=== PATIENT | female | born 1965 | race American Indian/Alaskan Native ===

== ENCOUNTER 2019-12-10 00:59 | Emergency (ER) | payer SELFPAY ==
[2019-12-10] MEDS ORDERED: oxyCODONE /ACETAMINOPHEN 5-325MG TAB PO ONE (01:50)
[2019-12-10] MEDS ORDERED: TETANUS,DIPH,PERTUSS(ACELL) VACCINE 0.5 ML SYRINGE IM ONE (01:53)
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
[2019-12-10 03:13] VITALS: BP 141/81
== END 2019-12-10 03:30 | disposition home or self-care (01) ==
LOC: ED 00:59
DX: T21.22XA Burn of second degree of abdominal wall, initial encounter (principal); T24.111A Burn of first degree of right thigh, initial encounter; I10 Essential (primary) hypertension; F41.9 Anxiety disorder, unspecified; J45.909 Unspecified asthma, uncomplicated; F17.200 Nicotine dependence, unspecified, uncomplicated; F12.10 Cannabis abuse, uncomplicated; Z79.899 Other long term (current) drug therapy; X12.XXXA Contact with other hot fluids, initial encounter; Y93.89 Activity, other specified; Y92.89 Other specified places as the place of occurrence of the external cause; Y99.8 Other external cause status
CPT/HCPCS: 90471; 90715

== ENCOUNTER 2019-12-23 07:00 | Emergency (ER) | payer SELFPAY ==
[2019-12-23] MEDS ORDERED: ONDANSETRON 4 MG/2 ML INJ IV ONE (09:00)
[2019-12-23] MEDS ORDERED: SODIUM CHLORIDE 0.9% 1000 ML 1,000 ML IV ONE (09:00)
[2019-12-23] MEDS ORDERED: FAMOTIDINE 20 MG TAB PO ONE (09:01)
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
[2019-12-23 09:45] LABS: Basophils % (Auto) 0.6 % (0.0-1.8); Eosinophils # (Auto) 0.1 K/mm3 (0.0-0.4); Hematocrit 39.8 % (30.3-42.9); Hemoglobin 13.3 gm/dl (10.1-14.3); Lymphocytes # (Auto) 1.8 K/mm3 (1.2-5.4); Lymphocytes % (Auto) 30.9 % (13.4-35.0); Mean Corpuscular HGB Conc 34 % (30-34); Mean Corpuscular Volume 92 fl (79-97); Monocytes # (Auto) 0.3 K/mm3 (0.0-0.8); Monocytes % (Auto) 4.5 % (0.0-7.3); Platelet Count 270 K/mm3 (140-440); Red Blood Count 4.34 M/mm3 (3.65-5.03); Red Cell Distribution Width 15.5 % (13.2-15.2)
[2019-12-23 10:15] LABS: Albumin 3.4 g/dL (3.9-5); BUN/Creatinine Ratio 22; Blood Urea Nitrogen 11 mg/dL (7-17); Calcium 8.6 mg/dL (8.4-10.2); Hemolysis Index 98
[2019-12-23 10:36] LABS: Bilirubin,Urine NEG (Negative); Blood,Urine NEG (Negative); Color,Urine Yellow (Yellow); Mucus,Urine FEW /HPF; Protein,Urine <15 mg/dL mg/dL (Negative); Urobilinogen,Urine < 2.0 mg/dL (<2.0)
[2019-12-23 10:37] LABS: Alanine Aminotransferase 10 units/L (7-56)
[2019-12-23 11:07] VITALS: BP 154/80
== END 2019-12-23 11:06 | disposition home or self-care (01) ==
LOC: ED 07:00
DX: K29.20 Alcoholic gastritis without bleeding (principal); I10 Essential (primary) hypertension; F41.9 Anxiety disorder, unspecified; J45.909 Unspecified asthma, uncomplicated; F17.200 Nicotine dependence, unspecified, uncomplicated; Z79.899 Other long term (current) drug therapy
CPT/HCPCS: 36415; 80053; 81001; 83690; 83735; 84484; 84703; 85025; 93005; 93010; 96361; 96374; 99284; J2405; J7030

== ENCOUNTER 2020-02-03 12:35 | Emergency (ER) | payer SELFPAY ==
[2020-02-03 13:24] VITALS: BP 115/89
--- NOTE | 2020-02-03 13:26 | Emergency Department Report ---
ED ENT HPI - General Chief complaint: Dental/Oral Stated complaint: TOOTHACHE FACE SWOLLEN Time Seen by Provider: 02/03/20 13:22 Source: patient Mode of arrival: Ambulatory Limitations: No Limitations - History of Present Illness Initial comments: This is a 54-year-old female nontoxic well in appearance with no signs of distress presents to the ED with complaint of toothache. Patient denies any facial swelling. Denies following up with a dentist. Denies any fever, chills, headache, nausea, vomiting, chest pain or SOB. Denies any other complaints. Denies any allergies. MD complaint: tooth pain -: week(s) Location: tooth # 1 - pain here Severity: mild Severity scale (0 -10): 8 Quality: aching Consistency: constant Improves with: none Worsens with: none Context- Dental: history of dental caries, poor dental care Associated Symptoms: gum swelling, toothache. denies: fever, cough, pain with swallowing, sore throat, tinnitus, hearing loss, discharge from ear, rhinorrhea - Related Data Previous Rx's Medication Instructions Recorded Last Taken Type Doxycycline Monohydrate 100 mg PO BID 10 Days #20 capsule 12/10/19 Unknown Rx HYDROcodone/APAP 5-325 [[place] 1 each PO Q6HR PRN #8 tablet 12/10/19 Unknown Rx 5-325 mg TAB] Ibuprofen [Motrin 800 MG tab] 800 mg PO Q8HR PRN #21 tablet 12/10/19 Unknown Rx Mupirocin [Bactroban 2% OINT] 1 applic TP TID 15 Days #2 tube 12/10/19 Unknown Rx Silver Sulfadiazine [Ssd] 85 gm TP BID 5 Days #1 tube 12/10/19 Unknown Rx Famotidine [Pepcid] 40 mg PO QHS #14 tablet 12/23/19 Unknown Rx Ondansetron [Zofran Odt] 4 mg PO Q8HR PRN #12 tab.rapdis 12/23/19 Unknown Rx Clindamycin [Clindamycin CAP] 300 mg PO Q8H #21 cap 02/03/20 Unknown Rx Naproxen 500 mg PO Q12H PRN #12 tablet 02/03/20 Unknown Rx Allergies Allergy/AdvReac Type Severity Reaction Status Date / Time codeine Allergy Unknown Verified 02/03/20 13:24 ED Dental HPI - General Chief complaint: Dental/Oral Stated complaint: TOOTHACHE FACE SWOLLEN Time Seen by Provider: 02/03/20 13:22 Source: patient Mode of arrival: Ambulatory Limitations: No Limitations - Related Data Previous Rx's Medication Instructions Recorded Last Taken Type Doxycycline Monohydrate 100 mg PO BID 10 Days #20 capsule 12/10/19 Unknown Rx HYDROcodone/APAP 5-325 [[place] 1 each PO Q6HR PRN #8 tablet 12/10/19 Unknown Rx 5-325 mg TAB] Ibuprofen [Motrin 800 MG tab] 800 mg PO Q8HR PRN #21 tablet 12/10/19 Unknown Rx Mupirocin [Bactroban 2% OINT] 1 applic TP TID 15 Days #2 tube 12/10/19 Unknown Rx Silver Sulfadiazine [Ssd] 85 gm TP BID 5 Days #1 tube 12/10/19 Unknown Rx Famotidine [Pepcid] 40 mg PO QHS #14 tablet 12/23/19 Unknown Rx Ondansetron [Zofran Odt] 4 mg PO Q8HR PRN #12 tab.rapdis 12/23/19 Unknown Rx Clindamycin [Clindamycin CAP] 300 mg PO Q8H #21 cap 02/03/20 Unknown Rx Naproxen 500 mg PO Q12H PRN #12 tablet 02/03/20 Unknown Rx Allergies Allergy/AdvReac Type Severity Reaction Status Date / Time codeine Allergy Unknown Verified 02/03/20 13:24 ED Review of Systems ROS: Stated complaint: TOOTHACHE FACE SWOLLEN Other details as noted in HPI Constitutional: denies: chills, fever Eyes: denies: eye pain, eye discharge, vision change ENT: dental pain. denies: ear pain, throat pain Respiratory: denies: cough, shortness of breath, wheezing Cardiovascular: denies: chest pain, palpitations Endocrine: no symptoms reported Gastrointestinal: denies: abdominal pain, nausea, diarrhea Genitourinary: denies: urgency, dysuria, discharge Musculoskeletal: denies: back pain, joint swelling, arthralgia Skin: denies: rash, lesions Neurological: denies: headache, weakness, paresthesias Psychiatric: denies: anxiety, depression Hematological/Lymphatic: denies: easy bleeding, easy bruising ED Past Medical Hx - Past Medical History Hx Hypertension: Yes Hx Psychiatric Treatment: Yes (Anxiety) Hx Asthma: Yes - Social History Smoking Status: Current Every Day Smoker Substance Use Type: Alcohol - Medications Home Medications: Home Medications Medication Instructions Recorded Confirmed Last Taken Type Doxycycline Monohydrate 100 mg PO BID 10 Days #20 capsule 12/10/19 Unknown Rx HYDROcodone/APAP 5-325 [[place] 1 each PO Q6HR PRN #8 tablet 12/10/19 Unknown Rx 5-325 mg TAB] Ibuprofen [Motrin 800 MG tab] 800 mg PO Q8HR PRN #21 tablet 12/10/19 Unknown Rx Mupirocin [Bactroban 2% OINT] 1 applic TP TID 15 Days #2 tube 12/10/19 Unknown Rx Silver Sulfadiazine [Ssd] 85 gm TP BID 5 Days #1 tube 12/10/19 Unknown Rx Famotidine [Pepcid] 40 mg PO QHS #14 tablet 12/23/19 Unknown Rx Ondansetron [Zofran Odt] 4 mg PO Q8HR PRN #12 tab.rapdis 12/23/19 Unknown Rx Clindamycin [Clindamycin CAP] 300 mg PO Q8H #21 cap 02/03/20 Unknown Rx Naproxen 500 mg PO Q12H PRN #12 tablet 02/03/20 Unknown Rx ED Physical Exam - General Limitations: No Limitations General appearance: alert, in no apparent distress - Head Head exam: Present: atraumatic, normocephalic - Expanded ENT Exam Expanded Ear exam: Present: normal external inspection Mouth exam: Present: normal external inspection, tongue normal. Absent: drooling, trismus, muffled voice Teeth exam: Present: dental caries, fractured tooth #, dental tenderness #, gingival enlargement, other (no facial swelling. no abscess) Throat exam: Positive: normal inspection. Negative: tonsillar erythema, tonsillomegaly, tonsillar exudate, R peritonsillar mass, L peritonsillar mass - Neck Neck exam: Present: normal inspection, full ROM. Absent: tenderness, meningismus, lymphadenopathy ED Course Vital Signs 02/03/20 13:21 Temperature 98.7 F Pulse Rate 78 Respiratory 18 Rate Blood Pressure 115/89 O2 Sat by Pulse 99 Oximetry - Reevaluation(s) Reevaluation #1: 02/03/20 13:25 Patient is speaking in full sentences with no signs of distress noted. ED Medical Decision Making - Medical Decision Making Patient was instructed to Follow-up with a dentist doctor in 3-5 days or if symptoms worsen and continue return to emergency room as soon as possible. At time of discharge, the patient does not seem toxic or ill in appearance. No acute signs of distress noted. Patient agrees to discharge treatment plan of care. No further questions noted by the patient. Critical care attestation.: If time is entered above; I have spent that time in minutes in the direct care of this critically ill patient, excluding procedure time. ED Disposition Clinical Impression: Dental caries, Gingivitis Disposition: TO HOME OR SELFCARE Is pt being admited?: No Does the pt Need Aspirin: No Condition: Stable Instructions: Dental Caries (ED), Gingivitis (ED) Additional Instructions: Follow-up with a dentist doctor in 3-5 days or if symptoms worsen and continue return to emergency room as soon as possible. Prescriptions: Clindamycin [Clindamycin CAP] 300 mg PO Q8H #21 cap Naproxen 500 mg PO Q12H PRN #12 tablet PRN Reason: Pain , Severe (7-10) Referrals: PRIMARY CAREMD [Primary Care Provider] - 3-5 Days HARRIS RIVERS MD [Staff Physician] - 3-5 Days [facility] [Outside] - 3-5 Days
== END 2020-02-03 14:00 | disposition home or self-care (01) ==
LOC: ED 12:35
DX: K02.9 Dental caries, unspecified (principal); K05.10 Chronic gingivitis, plaque induced; I10 Essential (primary) hypertension; J45.909 Unspecified asthma, uncomplicated; F41.9 Anxiety disorder, unspecified; F17.200 Nicotine dependence, unspecified, uncomplicated; Z79.899 Other long term (current) drug therapy; Z88.5 Allergy status to narcotic agent
CPT/HCPCS: 99282

== ENCOUNTER 2021-03-27 13:46 | Emergency (ER) | payer SELFPAY ==
--- NOTE | 2021-03-27 14:22 | Emergency Department Report ---
- General Chief complaint: Rectal Pain Stated complaint: RECTAL/HEART PAIN Time Seen by Provider: 03/27/21 14:20 Source: patient Mode of arrival: Ambulatory Limitations: No Limitations - History of Present Illness Initial comments: 55-year-old female with a past medical history of hypertension and hyperlipidemia presents to the ER today complaint of a tender swollen area to her her rectal area. She states that she noticed it this morning. She reports increasing pain with walking and sitting. She denies any apparent drainage from it. She denies history of abscesses in the past. She denies any apparent fever or chills. She reports no other symptoms at this time. complaint: abscess/boil -: Gradual (notice pain today) - Related Data Previous Rx's Medication Instructions Recorded Last Taken Type HYDROcodone/APAP 5-325 [[place] 1 each PO Q4HR PRN #14 tablet 03/27/21 Unknown Rx 5/325] Lisinopril/Hydrochlorothiazide 1 each PO DAILY #30 tablet 03/27/21 Unknown Rx [Zestoretic 20-12.5 mg] Sulfamethoxazole/Trimethoprim 1 each PO BID #14 tablet 03/27/21 Unknown Rx [Bactrim DS TAB] Allergies Allergy/AdvReac Type Severity Reaction Status Date / Time codeine Allergy Unknown Verified 02/03/20 13:24 Abscess Boil HPI - HPI Chief Complaint: Rectal Pain Stated Complaint: RECTAL/HEART PAIN Time Seen by Provider: 03/27/21 14:20 Home Medications: Previous Rx's Medication Instructions Recorded Last Taken Type HYDROcodone/APAP 5-325 [[place] 1 each PO Q4HR PRN #14 tablet 03/27/21 Unknown Rx 5/325] Lisinopril/Hydrochlorothiazide 1 each PO DAILY #30 tablet 03/27/21 Unknown Rx [Zestoretic 20-12.5 mg] Sulfamethoxazole/Trimethoprim 1 each PO BID #14 tablet 03/27/21 Unknown Rx [Bactrim DS TAB] Allergies/Adverse Reactions: Allergies Allergy/AdvReac Type Severity Reaction Status Date / Time codeine Allergy Unknown Verified 02/03/20 13:24 ED Review of Systems ROS: Stated complaint: RECTAL/HEART PAIN Other details as noted in HPI Comment: All other systems reviewed and negative Constitutional: denies: chills, fever Eyes: denies: eye pain, eye discharge, vision change ENT: denies: ear pain, throat pain, dental pain, hearing loss, epistaxis, congestion Respiratory: denies: cough, shortness of breath, SOB with exertion, SOB at rest, wheezing Cardiovascular: denies: chest pain, palpitations Gastrointestinal: denies: abdominal pain, nausea, vomiting, diarrhea, constipation, hematemesis, melena, hematochezia Genitourinary: denies: urgency, dysuria, frequency, hematuria, discharge, abnormal menses, dyspareunia Musculoskeletal: denies: back pain, joint swelling, arthralgia Skin: rash, other (Tender swollen area in rectum). denies: lesions, change in color, change in hair/nails, pruritus Neurological: denies: headache, weakness, paresthesias, confusion, abnormal gait, vertigo Psychiatric: denies: anxiety, depression, auditory hallucinations, visual hallucinations, homicidal thoughts Hematological/Lymphatic: denies: easy bleeding, easy bruising ED Past Medical Hx - Past Medical History Previous Medical History?: Yes Hx Hypertension: Yes Hx Psychiatric Treatment: Yes (Anxiety) Hx Asthma: Yes - Social History Smoking Status: Never Smoker - Medications Home Medications: Home Medications Medication Instructions Recorded Confirmed Last Taken Type HYDROcodone/APAP 5-325 [[place] 1 each PO Q4HR PRN #14 tablet 03/27/21 Unknown Rx 5/325] Lisinopril/Hydrochlorothiazide 1 each PO DAILY #30 tablet 03/27/21 Unknown Rx [Zestoretic 20-12.5 mg] Sulfamethoxazole/Trimethoprim 1 each PO BID #14 tablet 03/27/21 Unknown Rx [Bactrim DS TAB] ED Physical Exam - General Limitations: No Limitations General appearance: alert, obese - Head Head exam: Present: atraumatic, normocephalic, normal inspection - Eye Eye exam: Present: normal appearance, PERRL, EOMI Pupils: Present: normal accommodation - Respiratory Respiratory exam: Present: normal lung sounds bilaterally. Absent: respiratory distress - Cardiovascular Cardiovascular Exam: Present: regular rate, normal rhythm, normal heart sounds - Rectal Rectal exam: Present: other (Abscess noted on the right in the butt cheeks; no rectal involvement; no apparent drainage or significant cellulitis) - Neurological Exam Neurological exam: Present: alert, oriented X3, CN II-XII intact, normal gait - Psychiatric Psychiatric exam: Present: normal affect, normal mood - Skin Skin exam: Present: intact ED Course Vital Signs 03/27/21 03/27/21 14:00 16:33 Temperature 98.3 F Pulse Rate 85 67 Respiratory 17 18 Rate Blood Pressure 181/106 183/107 [Right] O2 Sat by Pulse 99 99 Oximetry - I & D Right Rectum Type of Procedure: Simple Site: right perirectal area Blade Size: 11 I & D Procedure: betadine prep, sterile dressing applied Progress: 1% lidocaine with epi used. Moderate amount of pus and blood drained. Wound irrigated with saline No packing placed. Dressing applied. Patient tolerated procedure well without any complication ED Medical Decision Making - Medical Decision Making Pt with ~[id number] right lon-rectal abscess without any significant associated cellulitis or rectal involvement. Abscess was drained by me. See procedure note for detail. Patient is well appearing not toxic and not in any significant distress. She is afebrile. Her BP is elevated, she has known hx of HTN but admits that she has not taken her BP meds in awhile. She states she is unable to get medicaid to cover her office visits. She currently has no symptoms related to her BP. She is awake alert oriented x3 and neurologically intact with a normal gait. Patient states that she is to be on lisinopril, she will be given a prescription for lisinopril in addition antibiotics and pain meds. She will be given referral to local primary care doctor. Patient stable at time of discharge. Critical care attestation.: If time is entered above; I have spent that time in minutes in the direct care of this critically ill patient, excluding procedure time. ED Disposition Clinical Impression: Perirectal abscess, Uncontrolled hypertension, Non compliance w medication regimen Disposition: DC-01 TO HOME OR SELFCARE Is pt being admited?: No Does the pt Need Aspirin: No Condition: Stable Instructions: Skin Abscess, [id number], Hypertension (ED) Additional Instructions: Take the hydrocodone and the antibiotics as prescribed. You can also take [id number] Motrin for additional pain control. Keep the area clean with soap and water, do not do any tub baths, do not use peroxide or alcohol to clean the area. Dry well after each cleaning. Area should heal in about 5 to 7 days. Return to the ER if the area seems to be getting worse. Prescriptions: Sulfamethoxazole/Trimethoprim [Bactrim DS TAB] 1 each PO BID #14 tablet HYDROcodone/APAP 5-325 [[place] 5/325] 1 each PO Q4HR PRN #14 tablet PRN Reason: Pain Lisinopril/Hydrochlorothiazide [Zestoretic 20-12.5 mg] 1 each PO DAILY #30 ta blet Referrals: HARRIS RIVERS MD [Staff Physician] - 3-5 Days Time of Disposition: 16:21
[2021-03-27] MEDS ORDERED: LIDOCAINE 1%/EPINEPHRINE 1:100,000 VIAL (20 ML) INFILTRATI NR (14:30)
[2021-03-27] MEDS ORDERED: IBUPROFEN 800 MG TAB PO ONE (14:49)
[2021-03-27 16:35] VITALS: BP 183/107
== END 2021-03-27 17:01 | disposition home or self-care (01) ==
LOC: ED 13:46
DX: K61.1 Rectal abscess (principal); I10 Essential (primary) hypertension; J45.909 Unspecified asthma, uncomplicated; F41.9 Anxiety disorder, unspecified; Z91.14 Patient's other noncompliance with medication regimen; Z88.5 Allergy status to narcotic agent; Z79.899 Other long term (current) drug therapy
CPT/HCPCS: 99282

== ENCOUNTER 2021-06-05 16:10 | Emergency (ER) | payer SELFPAY ==
[2021-06-05 16:16] VITALS: BP 142/91
[2021-06-05] MEDS ORDERED: dexAMETHasone 4 MG/ML VIAL IM STA (16:17)
[2021-06-05] MEDS ORDERED: IPRATROPIUM 0.02% NEBU 2.5 ML IH ONE (16:17)
[2021-06-05] MEDS ORDERED: ALBUTEROL 2.5 MG/3 ML NEBU IH ONE (16:17)
--- NOTE | 2021-06-05 17:11 | Emergency Department Report ---
ED General Adult HPI - General Chief complaint: Dyspnea/Respdistress Stated complaint: ASTHMA/SOB Time Seen by Provider: 06/05/21 16:31 Source: patient Mode of arrival: Ambulatory Limitations: No Limitations - History of Present Illness Initial comments: 55-year-old female patient with history of hypertension, hyperlipidemia, and asthma presents to the emergency department with complaints of atraumatic right- sided back pain and shortness of breath starting this morning. Patient states she does not have insurance and has not taken her medications in several months. Smokes occasionally. Also endorses numbness in both feet. No known history of diabetes. Denies fever, chills, cough, syncope, lower extremity pain/swelling, hemoptysis. Denies all other complaints at this time. - Related Data Previous Rx's Medication Instructions Recorded Last Taken Type HYDROcodone/APAP 5-325 [[place] 1 each PO Q4HR PRN #14 tablet 03/27/21 Unknown Rx 5/325] Lisinopril/Hydrochlorothiazide 1 each PO DAILY #30 tablet 03/27/21 Unknown Rx [Zestoretic 20-12.5 mg] Sulfamethoxazole/Trimethoprim 1 each PO BID #14 tablet 03/27/21 Unknown Rx [Bactrim DS TAB] Albuterol Sulfate [Proair 90 mcg IH Q4H #1 aer.pow.ba 06/05/21 Unknown Rx Respiclick] Allergies Allergy/AdvReac Type Severity Reaction Status Date / Time codeine Allergy Unknown Verified 02/03/20 13:24 ED Review of Systems ROS: Stated complaint: ASTHMA/SOB Other details as noted in HPI Other: GENERAL: Negative for fever, chills, weight change, anorexia, fatigue. ENT: Negative for ear pain, difficulty hearing, sore throat, nasal congestion, epistaxis. CARDIOVASCULAR: Negative for chest pain, palpitations, lower extremity swelling. PULMONARY: Positive for shortness of breath. GASTROINTESTINAL: Negative for abdominal pain, nausea, vomiting, diarrhea, constipation. MUSCULOSKELETAL: Positive for back pain. NEUROLOGICAL: Negative for headache, seizure, syncope, paresthesias, weakness. INTEGUMENTARY: Negative for erythema, rash, diaphoresis, laceration, ecchymosis. HEMATOLOGICAL: Negative for hemoptysis, hematemesis, hematochezia, hematuria. PSYCHIATRIC: Negative for hallucinations, suicidal ideation, homicidal ideation, anxiety, depression. ED Past Medical Hx - Past Medical History Previous Medical History?: Yes Hx Hypertension: Yes Hx Psychiatric Treatment: Yes (Anxiety) Hx Asthma: Yes - Social History Smoking Status: Never Smoker - Medications Home Medications: Home Medications Medication Instructions Recorded Confirmed Last Taken Type HYDROcodone/APAP 5-325 [[place] 1 each PO Q4HR PRN #14 tablet 03/27/21 Unknown Rx 5/325] Lisinopril/Hydrochlorothiazide 1 each PO DAILY #30 tablet 03/27/21 Unknown Rx [Zestoretic 20-12.5 mg] Sulfamethoxazole/Trimethoprim 1 each PO BID #14 tablet 03/27/21 Unknown Rx [Bactrim DS TAB] Albuterol Sulfate [Proair 90 mcg IH Q4H #1 aer.pow.ba 06/05/21 Unknown Rx Respiclick] ED Physical Exam - General Limitations: No Limitations - Other Other exam information: General: Awake and alert. Appears uncomfortable. Pacing the exam room, holding her back. Head: Atraumatic, normocephalic. Eyes: EOMI. Pupils are equal and round. Normal sclera and conjunctiva. ENT: Oral mucosa is moist. Normal pharyngeal exam. Neck: Supple. No lymphadenopathy. Pulmonary: Increased work of breathing. Speaking in full sentences. Clear to auscultation bilaterally. Cardiac: Regular rate and rhythm. Pulses are palpable and equal bilaterally. No lower extremity cyanosis or edema. Skin: Warm and dry. No rashes. Abdomen: Soft, non-tender, non-protuberant. No guarding, rigidity, or rebound. Bowel sounds are normal. No organomegaly or masses noted. Back: Normal alignment. No CVA tenderness. Extremities: Symmetrical. Full range of motion intact. Neurological: Alert and oriented, appropriately interactive, no focal deficits. Psych: Cooperative. Appropriate mood and affect. Speech is evenly metered. Thoughts are logically construed. ED Course Vital Signs 06/05/21 16:15 Temperature 98.5 F Pulse Rate 84 Respiratory 22 Rate Blood Pressure 142/91 O2 Sat by Pulse 100 Oximetry ED Medical Decision Making - Lab Data Result diagrams: 06/05/21 17:36 06/05/21 17:36 - EKG Data 06/05/21 17:36 EKG shows sinus bradycardia with a ventricular rate of 58 bpm. Normal axis. Normal NH interval. Normal QT interval. Good R wave progression. No ST segment changes. Over read by attending emergency physician, who agrees with this interpretation. - Radiology Data [facility] [address] [place] [address] Cat Scan Report Signed Patient: ERIKA BECERRA MR#: [id number] : 1965 Acct:[id number] Age/Sex: 55 / F ADM Date: 06/05/21 Loc: ED Attending Dr: Ordering Physician: TWAN JOSÉ Date of Service: 06/05/21 Procedure(s): CT angio chest Accession Number(s): [id number] cc: TWAN JOSÉ CTA CHEST WITH CONTRAST INDICATION / CLINICAL INFORMATION: atraumatic back pain/numbness in feet. TECHNIQUE: Axial CT images were obtained through the chest after injection of 100 mL's of Omnipaque 350 IV contrast. 3 plane MIP and/or 3D reconstructions were produced. All CT scans at this location are performed using CT dose reduction for ALARA by means of automated exposure control. COMPARISON: None available. FINDINGS: PULMONARY ARTERIES: No pulmonary emboli. THORACIC AORTA: No significant abnormality. HEART: No significant abnormality. CORONARY ARTERY CALCIFICATION: None. MEDIASTINUM / KUN: No significant abnormality. PLEURA: No pleural effusion. No pneumothorax. LUNGS: No acute air space or interstitial disease. There is a 1.4 cm pleural based density involving the right lower lobe. ADDITIONAL FINDINGS: None. UPPER ABDOMEN: Incompletely evaluated left renal cystic mass which demonstrates a prominent enhancing septation. This mass measures approximately 3.5 x 3.8 x 2.8 cm. SKELETAL STRUCTURES: No significant osseous abnormality. IMPRESSION: 1. No CT evidence for pulmonary embolism. 2. No acute findings. 3. Incidentally incompletely evaluated cystic renal mass involving the left kidney measuring up to 3.[address] or MRI of the kidneys is recommended as cell carcinoma is not excluded. 4. There is a 1.4 cm pleural-based density involving the right lower lobe. Follow-up CT of the chest is recommended in 3 months for further evaluation. Signer Name: Mook Meneses DO Signed: 06/05/2021 8:12 PM Workstation Name: [id number] Transcribed By: MADISON Dictated By: MOOK MENESES DO Electronically Authenticated By: MOOK MENESES DO Signed Date/Time: 06/05/212011 DD/ 05 TD/TT: - Medical Decision Making Differential diagnosis including but not limited to: asthma exacerbation, pleural effusion, pneumonia, aortic aneurysm/dissection, strain/sprain, viral upper respiratory infection On reevaluation, patient is stable and symptoms have significantly improved. She states she feels much better and is asking when she can be discharged home. Repeat cardiopulmonary exam demonstrates normal work of breathing, good air movement, clear to auscultation bilaterally. EKG without acute injury pattern. Labs are unremarkable. CTA of the chest was obtained due to the atraumatic nature of patient's back pain with reported numbness in her feet, which showed no evidence of aneurysm/dissection or pulmonary embolism. Incidentally, patient was found to have a left cystic renal mass measuring up to 3.8 cm, as well as a 1.4 cm pleural-based density involving the right lower lung. Further imaging on an outpatient basis is recommended, however there is no clinical indication for further diagnostic work-up on an emergent basis at this time. These findings were explained in detail to the patient, who understands the need for close outpatient follow-up. She has been referred to primary care provider and instructed to call tomorrow to schedule follow-up appointment. Patient has been provided with a copy of her imaging results and specifically instructed to bring these results with her to her follow-up appointment in order to facilitate ivana ropriate arrangement of further outpatient studies. Patient understands that failure to follow-up on these findings may result in a missed diagnosis of metastatic disease, and agrees to call Dr. Wood's office tomorrow. Strict return precautions provided. Case discussed with Dr. Carson, who agrees with diagnostic work-up/plan of care. Critical care attestation.: If time is entered above; I have spent that time in minutes in the direct care of this critically ill patient, excluding procedure time. ED Disposition Clinical Impression: Renal mass Asthma exacerbation Qualifiers: Asthma severity: unspecified severity Asthma persistence: unspecified Qualified Code(s): J45.901 - Unspecified asthma with (acute) exacerbation Disposition: DC-01 TO HOME OR SELFCARE Is pt being admited?: No Does the pt Need Aspirin: No Condition: Stable Instructions: Asthma Attack Prevention, Adult Additional Instructions: Use Albuterol inhaler as directed. Avoid environmental triggers, which may worsen your asthma. Take Tylenol every 4 hours and Motrin every 8 hours as needed for pain. Follow-up with Dr. Wood, primary care provider, this week. Call tomorrow to schedule an appointment. See referral information below. Bring a copy of today's CT results with you to your follow-up appointment. It is very important that you follow up with Dr. Wood regarding these fi ndings. Additional imaging on an outpatient basis is needed to further evaluate the renal mass involving the left kidney, as well as the right lower lung density, to determine if these findings are benign or malignant. Return to the emergency department immediately for new or worsening symptoms. Prescriptions: Albuterol Sulfate [Proair Respiclick] 90 mcg IH Q4H #1 aer.pow.ba Referrals: HARRIS WOOD MD [Staff Physician] - 3-5 Days Time of Disposition: 21:33 HEART Score - HEART Score History: Slightly suspicious EKG: Normal Age: 45-65 Risk factors: 1-2 risk factors Troponin: Troponin T < 0.010 ng/mL (0.00-0.029) 06/05/21 20:38 Troponin: < normal limit HEART Score: 2 - Critical Actions Critical Actions: 0-3 pts:0.9-1.7%risk of adverse cardiac event.Candidate for discharge
[2021-06-05 18:40] LABS: Basophils % (Auto) 0.2 % (0.0-1.8); Eosinophils # (Auto) 0.2 K/mm3 (0.0-0.4); Hematocrit 36.8 % (30.3-42.9); Hemoglobin 12.5 gm/dl (10.1-14.3); Lymphocytes # (Auto) 2.9 K/mm3 (1.2-5.4); Lymphocytes % (Auto) 44.2 % (13.4-35.0); Mean Corpuscular HGB Conc 34 % (30-34); Mean Corpuscular Volume 93 fl (79-97); Monocytes # (Auto) 0.5 K/mm3 (0.0-0.8); Platelet Count 235 K/mm3 (140-440); Red Blood Count 3.96 M/mm3 (3.65-5.03); Red Cell Distribution Width 16.2 % (13.2-15.2)
[2021-06-05 18:51] LABS: Alanine Aminotransferase 9 units/L (7-56); Albumin 3.6 g/dL (3.9-5); Blood Urea Nitrogen 11 mg/dL (7-17); Calcium 8.8 mg/dL (8.4-10.2); Hemolysis Index 17
[2021-06-05 18:58] LABS: BUN/Creatinine Ratio 22
--- NOTE | 2021-06-05 20:17 | Cat Scan Report ---
CTA CHEST WITH CONTRAST INDICATION / CLINICAL INFORMATION: atraumatic back pain/numbness in feet. TECHNIQUE: Axial CT images were obtained through the chest after injection of 100 mL's of Omnipaque 3 50 IV contrast. 3 plane MIP and/or 3D reconstructions were produced. All CT scans at this location ar e performed using CT dose reduction for ALARA by means of automated exposure control. COMPARISON: None available. FINDINGS: PULMONARY ARTERIES: No pulmonary emboli. THORACIC AORTA: No significant abnormality. HEART: No significant abnormality. CORONARY ARTERY CALCIFICATION: None. MEDIASTINUM / KUN: No significant abnormality. PLEURA: No pleural effusion. No pneumothorax. LUNGS: No acute air space or interstitial disease. There is a 1.4 cm pleural based density involving the right lower lobe. ADDITIONAL FINDINGS: None. UPPER ABDOMEN: Incompletely evaluated left renal cystic mass which demonstrates a prominent enhancing septation. This mass measures approximately 3.5 x 3.8 x 2.8 cm. SKELETAL STRUCTURES: No significant osseous abnormality. IMPRESSION: 1. No CT evidence for pulmonary embolism. 2. No acute findings. 3. Incidentally incompletely evaluated cystic renal mass involving the left kidney measuring up to 3. [address] or MRI of the kidneys is recommended as cell carcinoma is not excluded. 4. There is a 1.4 cm pleural-based density involving the right lower lobe. Follow-up CT of the chest is recommended in 3 months for further evaluation. Signer Name: Mook Rand DO Signed: 06/05/2021 8:12 PM Workstation Name: [id number]
--- NOTE | 2021-06-06 10:32 | Electrocardiograph Report ---
[facility] Test Date: 2021-06-05 Test Time: 17:26:17 Pat Name: ERIKA BECERRA Department: Room: Gender: F Hat Checker: DILMA : 1965 Requested By: RAMON DALTON Order Number: [id number] Reading MD: Tod Be Measurements Intervals [place] Rate: 58 P: 35 IA: 172 QRS: 20 QRSD: 72 T: 31 QT: 400 QTc: 395 Interpretive Statements Pacemaker spikes or artifacts Sinus bradycardia No previous ECG available for comparison Electronically Signed On 06-06-2021 10:31:56 EDT by Tod Be
== END 2021-06-05 21:47 | disposition home or self-care (01) ==
LOC: ED 16:10
DX: J45.901 Unspecified asthma with (acute) exacerbation (principal); N28.89 Other specified disorders of kidney and ureter; I10 Essential (primary) hypertension; F41.9 Anxiety disorder, unspecified
CPT/HCPCS: 36415; 71275; 80053; 83735; 84484; 85025; 93005; 96372; 99284; J1100; Q9967

== ENCOUNTER 2021-08-01 16:07 | Emergency (ER) | payer SELFPAY ==
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
[2021-08-01] MEDS ORDERED: IBUPROFEN 800 MG TAB PO ONE ×2 (16:11→18:48)
[2021-08-01] MEDS ORDERED: TETANUS,DIPH,PERTUSS(ACELL) VACCINE 0.5 ML SYRINGE IM ONE ×2 (16:11→20:00)
[2021-08-01 17:05] VITALS: BP 151/95
== END 2021-08-01 20:28 | disposition home or self-care (01) ==
LOC: ED 16:07
DX: S00.01XA Abrasion of scalp, initial encounter (principal); S60.419A Abrasion of unspecified finger, initial encounter; I10 Essential (primary) hypertension; J45.909 Unspecified asthma, uncomplicated; Z88.5 Allergy status to narcotic agent; Y04.8XXA Assault by other bodily force, initial encounter; Y93.89 Activity, other specified; Y92.89 Other specified places as the place of occurrence of the external cause; Y99.8 Other external cause status
CPT/HCPCS: 90471; 90715; 99283

== ENCOUNTER 2022-01-07 12:41 | Emergency (ER) | payer SELFPAY ==
[2022-01-07] MEDS ORDERED: IBUPROFEN 800 MG TAB PO ONE (14:07)
--- NOTE | 2022-01-07 14:13 | Emergency Department Report ---
ED ENT HPI - General Chief complaint: Dental/Oral Stated complaint: SOB Time Seen by Provider: 01/07/22 13:01 Source: patient Mode of arrival: Ambulatory Limitations: No Limitations - History of Present Illness Initial comments: This is a 56-year-old female nontoxic, well nourished in appearance, no acute signs of distress presents to the ED with c/o of mid upper toothache several weeks. Patient denies following up with a dentist. Patient describes toothache as aching level of 8 out of 10. Patient denies any facial swelling. Patient denies any numbness, tingling, fever, chills, headache, stiff neck, abdominal pain, chest pain, shortness of breath. Patient stated allergies to codeine. Patient denies any other complaints or symptoms. MD complaint: tooth pain -: days(s) Location: tooth # 1 - Pain here Severity: mild Severity scale (0 -10): 8 Quality: aching Consistency: constant Improves with: none Worsens with: none Associated Symptoms: gum swelling, toothache. denies: fever, cough, pain with swallowing, sore throat, tinnitus, hearing loss, discharge from ear, rhinorrhea - Related Data Previous Rx's Medication Instructions Recorded Last Taken Type HYDROcodone/APAP 5-325 [[place] 1 each PO Q4HR PRN #14 tablet 03/27/21 Unknown Rx 5/325] Lisinopril/Hydrochlorothiazide 1 each PO DAILY #30 tablet 03/27/21 Unknown Rx [Zestoretic 20-12.5 mg] Sulfamethoxazole/Trimethoprim 1 each PO BID #14 tablet 03/27/21 Unknown Rx [Bactrim DS TAB] Albuterol Sulfate [Proair 90 mcg IH Q4H #1 aer.pow.ba 06/05/21 Unknown Rx Respiclick] Amoxicillin/K Clav Tab [Augmentin 1 tab PO Q12HR #20 tab 01/07/22 Unknown Rx 875 mg] Chlorhexidine Mouthwash [Peridex] 15 ml MM BID #1 bottle 01/07/22 Unknown Rx Naproxen 500 mg PO Q12H PRN #12 tab 01/07/22 Unknown Rx Allergies Allergy/AdvReac Type Severity Reaction Status Date / Time codeine Allergy Unknown Verified 02/03/20 13:24 ED Dental HPI - General Chief complaint: Dental/Oral Stated complaint: SOB Time Seen by Provider: 01/07/22 13:01 Source: patient Mode of arrival: Ambulatory Limitations: No Limitations - Related Data Previous Rx's Medication Instructions Recorded Last Taken Type HYDROcodone/APAP 5-325 [[place] 1 each PO Q4HR PRN #14 tablet 03/27/21 Unknown Rx 5/325] Lisinopril/Hydrochlorothiazide 1 each PO DAILY #30 tablet 03/27/21 Unknown Rx [Zestoretic 20-12.5 mg] Sulfamethoxazole/Trimethoprim 1 each PO BID #14 tablet 03/27/21 Unknown Rx [Bactrim DS TAB] Albuterol Sulfate [Proair 90 mcg IH Q4H #1 aer.pow.ba 06/05/21 Unknown Rx Respiclick] Amoxicillin/K Clav Tab [Augmentin 1 tab PO Q12HR #20 tab 01/07/22 Unknown Rx 875 mg] Chlorhexidine Mouthwash [Peridex] 15 ml MM BID #1 bottle 01/07/22 Unknown Rx Naproxen 500 mg PO Q12H PRN #12 tab 01/07/22 Unknown Rx Allergies Allergy/AdvReac Type Severity Reaction Status Date / Time codeine Allergy Unknown Verified 02/03/20 13:24 ED Review of Systems ROS: Stated complaint: SOB Other details as noted in HPI Comment: All other systems reviewed and negative Constitutional: denies: chills, fever Eyes: denies: eye pain, eye discharge, vision change ENT: dental pain. denies: ear pain, throat pain, hearing loss, epistaxis, congestion Respiratory: denies: cough, shortness of breath, wheezing Cardiovascular: denies: chest pain, palpitations Endocrine: no symptoms reported Gastrointestinal: denies: abdominal pain, nausea, diarrhea Genitourinary: denies: urgency, dysuria, discharge Musculoskeletal: denies: back pain, joint swelling, arthralgia Skin: denies: rash, lesions Neurological: denies: headache, weakness, paresthesias Psychiatric: denies: anxiety, depression Hematological/Lymphatic: denies: easy bleeding, easy bruising ED Past Medical Hx - Past Medical History Hx Hypertension: Yes Hx Psychiatric Treatment: Yes (Anxiety) Hx Asthma: Yes - Social History Smoking Status: Never Smoker - Medications Home Medications: Home Medications Medication Instructions Recorded Confirmed Last Taken Type HYDROcodone/APAP 5-325 [[place] 1 each PO Q4HR PRN #14 tablet 03/27/21 Unknown Rx 5/325] Lisinopril/Hydrochlorothiazide 1 each PO DAILY #30 tablet 03/27/21 Unknown Rx [Zestoretic 20-12.5 mg] Sulfamethoxazole/Trimethoprim 1 each PO BID #14 tablet 03/27/21 Unknown Rx [Bactrim DS TAB] Albuterol Sulfate [Proair 90 mcg IH Q4H #1 aer.pow.ba 06/05/21 Unknown Rx Respiclick] Amoxicillin/K Clav Tab [Augmentin 1 tab PO Q12HR #20 tab 01/07/22 Unknown Rx 875 mg] Chlorhexidine Mouthwash [Peridex] 15 ml MM BID #1 bottle 01/07/22 Unknown Rx Naproxen 500 mg PO Q12H PRN #12 tab 01/07/22 Unknown Rx ED Physical Exam - General Limitations: No Limitations General appearance: alert, in no apparent distress - Head Head exam: Present: atraumatic, normocephalic - Eye Eye exam: Present: normal appearance - Expanded ENT Exam Expanded Ear exam: Present: normal external inspection Mouth exam: Present: normal external inspection. Absent: drooling, trismus Teeth exam: Present: dental tenderness #, gingival enlargement, other (no facial swelling. no abscess on exam) Throat exam: Positive: normal inspection, other (uvula midline). Negative: tonsillar erythema, tonsillomegaly, tonsillar exudate, R peritonsillar mass, L peritonsillar mass - Neck Neck exam: Present: normal inspection, full ROM. Absent: lymphadenopathy - Respiratory Respiratory exam: Absent: respiratory distress - Extremities Exam Extremities exam: Present: full ROM - Back Exam Back exam: Present: full ROM - Neurological Exam Neurological exam: Present: alert, oriented X3, normal gait - Psychiatric Psychiatric exam: Present: normal affect, normal mood - Skin Skin exam: Present: warm, dry, intact, normal color. Absent: rash ED Course Vital Signs 01/07/22 12:53 Temperature 98.5 F Pulse Rate 101 H Respiratory 20 Rate Blood Pressure 164/95 O2 Sat by Pulse 99 Oximetry - Reevaluation(s) Reevaluation #1: 01/07/22 14:09 Patient is speaking in full sentences with no signs of distress noted. ED Medical Decision Making - Medical Decision Making This is a 56-year-old female that presents with gingivitis and dental caries. Patient is stable and was examined by me. Exam does not show dental abscess. Patient is discharged with Augmentin, Peridex and naproxen. Patient was instructed to follow-up with a dentist doctor in 3-5 days or if symptoms worsen and continue return to emergency room as soon as possible. At time of discharge, the patient does not seem toxic or ill in appearance. No acute signs of distress noted. Patient agrees to discharge treatment plan of care. No further questions noted by the patient. Critical care attestation.: If time is entered above; I have spent that time in minutes in the direct care of this critically ill patient, excluding procedure time. ED Disposition Clinical Impression: Pain, dental, Gingivitis Disposition: HOME / SELF CARE / HOMELESS Is pt being admited?: No Does the pt Need Aspirin: No Condition: Stable Additional Instructions: Follow-up with a dentist doctor in 3-5 days or if symptoms worsen and continue return to emergency room as soon as possible. Prescriptions: Amoxicillin/K Clav Tab [Augmentin 875 mg] 1 tab PO Q12HR #20 tab Naproxen 500 mg PO Q12H PRN #12 tab PRN Reason: Pain , Severe (7-10) Chlorhexidine Mouthwash [Peridex] 15 ml MM BID #1 bottle Referrals: [facility] [Outside] - 3-5 Days [facility] [Outside] - 3-5 Days PRIMARY CARE, [Referring] - 3-5 Days Time of Disposition: 14:14
[2022-01-07 14:34] VITALS: BP 197/110
== END 2022-01-07 14:30 | disposition home or self-care (01) ==
LOC: ED 12:41
DX: K08.89 Other specified disorders of teeth and supporting structures (principal); K05.10 Chronic gingivitis, plaque induced; I10 Essential (primary) hypertension; J45.909 Unspecified asthma, uncomplicated; Z88.5 Allergy status to narcotic agent
CPT/HCPCS: 99282

== ENCOUNTER 2022-02-09 15:11 | Emergency (ER) | payer OTHER ==
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
[2022-02-09 20:21] VITALS: BP 172/97
== END 2022-02-09 20:21 | disposition home or self-care (01) ==
LOC: ED 15:11
DX: M79.601 Pain in right arm (principal); M54.9 Dorsalgia, unspecified; I10 Essential (primary) hypertension; F41.9 Anxiety disorder, unspecified; J45.909 Unspecified asthma, uncomplicated; Z88.5 Allergy status to narcotic agent; Z79.899 Other long term (current) drug therapy; V87.7XXA Person injured in collision between other specified motor vehicles (traffic), initial encounter; Y93.89 Activity, other specified; Y92.488 Other paved roadways as the place of occurrence of the external cause; Y99.8 Other external cause status
CPT/HCPCS: 99282

== ENCOUNTER 2022-02-25 12:08 | Emergency (ER) | payer SELFPAY ==
--- NOTE | 2022-02-25 13:30 | Emergency Department Report ---
<LIAM HAY - Last Filed: 02/25/22 13:25> ED Neuro Deficit HPI - General Chief Complaint: Altered Mental Status Stated Complaint: AMS Time Seen by Provider: 02/25/22 13:06 Source: family, EMS Mode of arrival: Stretcher Limitations: Altered Mental Status - History of Present Illness Initial Comments: Patient is 56 years old female with history of hypertension. Patient brought to the emergency room via EMS for evaluation of altered mental status. However when I was talking to the patient patient is not talking back to me. I immediately called her daughter and she stated that she was fine until 830 when she stopped talking. Stroke protocol immediately initiated and patient moved to CT for stat CT brain. Telemetry neurologist immediately consulted and discussed with -: Sudden Location: speech Presenting Symptoms: Present: Unable to Speak Clearly Place: home - Related Data Home Medications: Previous Rx's Medication Instructions Recorded Last Taken Type HYDROcodone/APAP 5-325 [[place] 1 each PO Q4HR PRN #14 tablet 03/27/21 Unknown Rx 5/325] Lisinopril/Hydrochlorothiazide 1 each PO DAILY #30 tablet 03/27/21 Unknown Rx [Zestoretic 20-12.5 mg] Sulfamethoxazole/Trimethoprim 1 each PO BID #14 tablet 03/27/21 Unknown Rx [Bactrim DS TAB] Albuterol Sulfate [Proair 90 mcg IH Q4H #1 aer.[email or web address] 06/05/21 Unknown Rx Respiclick] Amoxicillin/K Clav Tab [Augmentin 1 tab PO Q12HR #20 tab 01/07/22 Unknown Rx 875 mg] Chlorhexidine Mouthwash [Peridex] 15 ml MM BID #1 bottle 01/07/22 Unknown Rx Naproxen 500 mg PO Q12H PRN #12 tab 01/07/22 Unknown Rx Lisinopril/Hydrochlorothiazide 1 each PO QDAY 30 Days #30 tab 02/09/22 Unknown Rx [Zestoretic 20-12.5 mg] methOCARBAMOL [Robaxin TAB] 750 mg PO Q8H PRN 15 Days #30 tab 02/09/22 Unknown Rx traMADoL [Ultram] 50 mg PO Q6HR PRN 3 Days #12 tablet 02/09/22 Unknown Rx Allergies/Adverse Reactions: Allergies Allergy/AdvReac Type Severity Reaction Status Date / Time codeine Allergy Unknown Verified 02/25/22 12:12 ED Review of Systems Comment: Unobtainable due to pts medical conditions ED Past Medical Hx - Past Medical History Hx Hypertension: Yes Hx Psychiatric Treatment: Yes (Anxiety) Hx Asthma: Yes - Social History Smoking Status: Never Smoker - Medications Home Medications: Home Medications Medication Instructions Recorded Confirmed Last Taken Type HYDROcodone/APAP 5-325 [[place] 1 each PO Q4HR PRN #14 tablet 03/27/21 Unknown Rx 5/325] Lisinopril/Hydrochlorothiazide 1 each PO DAILY #30 tablet 03/27/21 Unknown Rx [Zestoretic 20-12.5 mg] Sulfamethoxazole/Trimethoprim 1 each PO BID #14 tablet 03/27/21 Unknown Rx [Bactrim DS TAB] Albuterol Sulfate [Proair 90 mcg IH Q4H #1 aer.pow.[email or web address] 06/05/21 Unknown Rx Respiclick] Amoxicillin/K Clav Tab [Augmentin 1 tab PO Q12HR #20 tab 01/07/22 Unknown Rx 875 mg] Chlorhexidine Mouthwash [Peridex] 15 ml MM BID #1 bottle 01/07/22 Unknown Rx Naproxen 500 mg PO Q12H PRN #12 tab 01/07/22 Unknown Rx Lisinopril/Hydrochlorothiazide 1 each PO QDAY 30 Days #30 tab 02/09/22 Unknown Rx [Zestoretic 20-12.5 mg] methOCARBAMOL [Robaxin TAB] 750 mg PO Q8H PRN 15 Days #30 tab 02/09/22 Unknown Rx traMADoL [Ultram] 50 mg PO Q6HR PRN 3 Days #12 tablet 02/09/22 Unknown Rx ED Neuro Physical Exam - General Limitations: Altered Mental Status General appearance: alert, in no apparent distress, anxious Suspected Stroke: Yes - Head Head exam: Present: atraumatic, normocephalic, normal inspection - Eye Eye exam: Present: normal appearance - ENT ENT exam: Present: normal exam, normal orophraynx, mucous membranes moist - Neck Neck exam: Present: normal inspection. Absent: tenderness, meningismus - Respiratory Respiratory exam: Present: normal lung sounds bilaterally - Cardiovascular Cardiovascular Exam: Present: regular rate, normal rhythm, normal heart sounds - GI/Abdominal GI/Abdominal exam: Present: soft, normal bowel sounds. Absent: distended, tenderness, guarding, rebound, rigid, organomegaly, mass, bruit, pulsatile mass, hernia - Extremities Exam Extremities exam: Present: normal inspection, full ROM, normal capillary refill. Absent: tenderness, pedal edema, joint swelling, calf tenderness - Back Exam Back exam: Present: normal inspection, full ROM. Absent: CVA tenderness (R), CVA tenderness (L) - Neurological Exam Neurological exam: Present: alert - Psychiatric Psychiatric exam: Present: normal mood - Skin Skin exam: Present: warm, intact, normal color ED Disposition Clinical Impression: Altered mental status Disposition: HOME / SELF CARE / HOMELESS Condition: Stable <JACLYN MCDANIELS - Last Filed: 02/25/22 17:44> ED Review of Systems ROS: Stated complaint: AMS Other details as noted in HPI ED Course Vital Signs 02/25/22 12:09 Temperature 98.4 F Pulse Rate 68 Blood Pressure 172/95 [Left] O2 Sat by Pulse 98 Oximetry - Lab Data Result diagrams: 02/25/22 13:44 02/25/22 13:44 Lab Results 02/25/22 02/25/22 02/25/22 Range/Units 13:44 13:44 13:44 WBC 4.8 (4.5-11.0) K/mm3 RBC 4.59 (3.65-5.03) M/mm3 Hgb 13.7 (10.1-14.3) gm/dl Hct 42.1 (30.3-42.9) % MCV 92 (79-97) fl MCH 30 (28-32) pg MCHC 33 (30-34) % RDW 16.2 H (13.2-15.2) % Plt Count 250 (140-440) K/mm3 Lymph % (Auto) Photographic Process Worker Add Manual Diff Complete Total Counted 100 Seg Neutrophils % Photographic Process Worker Seg Neuts % (Manual) 31.0 L (40.0-70.0) % Band Neutrophils % 0 % Reactive Lymphs % (Man) 1.0 % Monocytes % (Manual) 5.0 (0.0-7.3) % Eosinophils % (Manual) 3.0 (0.0-4.3) % Metamyelocytes % 0 % Myelocytes % 0 % Promyelocytes % 0 % Blast Cells % 0 % Nucleated RBC % Not Reportable Seg Neutrophils # Man 1.5 L (1.8-7.7) K/mm3 Band Neutrophils # 0.0 K/mm3 Lymphocytes # (Manual) 2.9 (1.2-5.4) K/mm3 Abs React Lymphs (Man) 0.0 K/mm3 Monocytes # (Manual) 0.2 (0.0-0.8) K/mm3 Eosinophils # (Manual) 0.1 (0.0-0.4) K/mm3 Basophils # (Manual) 0.0 (0.0-0.1) K/mm3 Metamyelocytes # 0.0 K/mm3 Myelocytes # 0.0 K/mm3 Promyelocytes # 0.0 K/mm3 Blast Cells # 0.0 K/mm3 WBC Morphology Not Reportable Hypersegmented Neuts Not Reportable Hyposegmented Neuts Not Reportable Hypogranular Neuts Not Reportable Smudge Cells Not Reportable Toxic Granulation Not Reportable Toxic Vacuolation Not Reportable Dohle Bodies Not Reportable Pelger-Huet Anomaly Not Reportable Kwadwo Rods Not Reportable Platelet Estimate Consistent w auto Clumped Platelets Not Reportable Plt Clumps, EDTA Not Reportable Large Platelets Not Reportable Giant Platelets Not Reportable Platelet Satelliting Not Reportable Plt Morphology Comment Not Reportable RBC Morphology Not Reportable Dimorphic RBCs Not Reportable Polychromasia Not Reportable Hypochromasia Not Reportable Poikilocytosis Not Reportable Anisocytosis Not Reportable Microcytosis Not Reportable Macrocytosis Not Reportable Spherocytes Not Reportable Pappenheimer Bodies Not Reportable Sickle Cells Not Reportable Target Cells Few Tear Drop Cells Not Reportable Ovalocytes Not Reportable Helmet Cells Not Reportable Barrera-Lovell Bodies Not Reportable Cactus Rings Not Reportable [place] Cells Not Reportable Bite Cells Not Reportable Crenated Cell Not Reportable Elliptocytes Not Reportable Acanthocytes (Spur) Not Reportable Rouleaux Not Reportable Hemoglobin C Crystals Not Reportable Schistocytes Not Reportable Malaria parasites Not Reportable Tyrone Bodies Not Reportable Hem Pathologist Commnt No PT 13.8 (12.2-14.9) Sec. INR 0.96 (0.87-1.13) APTT 29.6 (24.2-36.6) Sec. Sodium 138 (137-145) mmol/L Potassium 3.7 (3.6-5.0) mmol/L Chloride 104.4 (98-107) mmol/L Carbon Dioxide 22 (22-30) mmol/L Anion Gap 15 mmol/L BUN 11 (7-17) mg/dL Creatinine 0.5 L (0.6-1.2) mg/dL Estimated GFR > 60 ml/min BUN/Creatinine Ratio 22 % Glucose 85 (65-100) mg/dL Lactic Acid (0.7-2.0) mmol/L Calcium 9.4 (8.4-10.2) mg/dL Total Bilirubin 0.40 (0.1-1.2) mg/dL Direct Bilirubin < 0.2 (0-0.2) mg/dL Indirect Bilirubin 0.2 mg/dL AST 14 (5-40) units/L ALT 9 (7-56) units/L Alkaline Phosphatase 92 (35-129) units/L Ammonia (25-60) umol/L Total Creatine Kinase 106 (30-135) units/L CK-MB (CK-2) (0.0-4.0) ng/mL CK-MB (CK-2) Rel Index (0-4) Troponin T < 0.010 (0.00-0.029) ng/mL Total Protein 7.5 (6.3-8.2) g/dL Albumin 3.8 L (3.9-5) g/dL Albumin/Globulin Ratio 1.0 % TSH (0.270-4.200) mlU/mL Urine Color (Yellow) Urine Turbidity (Clear) Urine pH (5.0-7.0) Ur Specific [place] (1.003-1.030) Urine Protein (Negative) mg/dL Urine Glucose (UA) (Negative) mg/dL Urine Ketones (Negative) mg/dL Urine Blood (Negative) Urine Nitrite (Negative) Urine Bilirubin (Negative) Urine Urobilinogen (<2.0) mg/dL Ur Leukocyte Esterase (Negative) Urine WBC (Auto) (0.0-6.0) /HPF Urine RBC (Auto) (0.0-6.0) /HPF U Epithel Cells (Auto) (0-13.0) /HPF Urine Mucus /HPF Salicylates (2.8-20.0) mg/dL Urine Opiates Screen Urine Methadone Screen Acetaminophen (10.0-30.0) ug/mL Ur Barbiturates Screen Ur Phencyclidine Scrn Ur Amphetamines Screen U Benzodiazepines Scrn Urine Cocaine Screen U Marijuana (THC) Screen Drugs of Abuse Note Plasma/Serum Alcohol (0-0.07) % 02/25/22 02/25/22 02/25/22 Range/Units 13:44 13:44 13:44 WBC (4.5-11.0) K/mm3 RBC (3.65-5.03) M/mm3 Hgb (10.1-14.3) gm/dl Hct (30.3-42.9) % MCV (79-97) fl MCH (28-32) pg MCHC (30-34) % RDW (13.2-15.2) % Plt Count (140-440) K/mm3 Lymph % (Auto) Add Manual Diff Total Counted Seg Neutrophils % Seg Neuts % (Manual) (40.0-70.0) % Band Neutrophils % % Reactive Lymphs % (Man) % Monocytes % (Manual) (0.0-7.3) % Eosinophils % (Manual) (0.0-4.3) % Metamyelocytes % % Myelocytes % % Promyelocytes % % Blast Cells % % Nucleated RBC % Seg Neutrophils # Man (1.8-7.7) K/mm3 Band Neutrophils # K/mm3 Lymphocytes # (Manual) (1.2-5.4) K/mm3 Abs React Lymphs (Man) K/mm3 Monocytes # (Manual) (0.0-0.8) K/mm3 Eosinophils # (Manual) (0.0-0.4) K/mm3 Basophils # (Manual) (0.0-0.1) K/mm3 Metamyelocytes # K/mm3 Myelocytes # K/mm3 Promyelocytes # K/mm3 Blast Cells # K/mm3 WBC Morphology Hypersegmented Neuts Hyposegmented Neuts Hypogranular Neuts Smudge Cells Toxic Granulation Toxic Vacuolation Dohle Bodies Pelger-Huet Anomaly Kwadwo Rods Platelet Estimate Clumped Platelets Plt Clumps, EDTA Large Platelets Giant Platelets Platelet Satelliting Plt Morphology Comment RBC Morphology Dimorphic RBCs Polychromasia Hypochromasia Poikilocytosis Anisocytosis Microcytosis Macrocytosis Spherocytes Pappenheimer Bodies Sickle Cells Target Cells Tear Drop Cells Ovalocytes Helmet Cells Barrera-Lovell Bodies Cactus Rings [place] Cells Bite Cells Crenated Cell Elliptocytes Acanthocytes (Spur) Rouleaux Hemoglobin C Crystals Schistocytes Malaria parasites Tyrone Bodies Hem Pathologist Commnt PT (12.2-14.9) Sec. INR (0.87-1.13) APTT (24.2-36.6) Sec. Sodium (137-145) mmol/L Potassium (3.6-5.0) mmol/L Chloride (98-107) mmol/L Carbon Dioxide (22-30) mmol/L Anion Gap mmol/L BUN (7-17) mg/dL Creatinine (0.6-1.2) mg/dL Estimated GFR ml/min BUN/Creatinine Ratio % Glucose (65-100) mg/dL Lactic Acid 1.30 (0.7-2.0) mmol/L Calcium (8.4-10.2) mg/dL Total Bilirubin (0.1-1.2) mg/dL Direct Bilirubin (0-0.2) mg/dL Indirect Bilirubin mg/dL AST (5-40) units/L ALT (7-56) units/L Alkaline Phosphatase (35-129) units/L Ammonia 34.0 (25-60) umol/L Total Creatine Kinase (30-135) units/L CK-MB (CK-2) (0.0-4.0) ng/mL CK-MB (CK-2) Rel Index (0-4) Troponin T (0.00-0.029) ng/mL Total Protein (6.3-8.2) g/dL Albumin (3.9-5) g/dL Albumin/Globulin Ratio % TSH 0.604 (0.270-4.200) mlU/mL Urine Color (Yellow) Urine Turbidity (Clear) Urine pH (5.0-7.0) Ur Specific [place] (1.003-1.030) Urine Protein (Negative) mg/dL Urine Glucose (UA) (Negative) mg/dL Urine Ketones (Negative) mg/dL Urine Blood (Negative) Urine Nitrite (Negative) Urine Bilirubin (Negative) Urine Urobilinogen (<2.0) mg/dL Ur Leukocyte Esterase (Negative) Urine WBC (Auto) (0.0-6.0) /HPF Urine RBC (Auto) (0.0-6.0) /HPF U Epithel Cells (Auto) (0-13.0) /HPF Urine Mucus /HPF Salicylates (2.8-20.0) mg/dL Urine Opiates Screen Urine Methadone Screen Acetaminophen (10.0-30.0) ug/mL Ur Barbiturates Screen Ur Phencyclidine Scrn Ur Amphetamines Screen U Benzodiazepines Scrn Urine Cocaine Screen U Marijuana (THC) Screen Drugs of Abuse Note Plasma/Serum Alcohol (0-0.07) % 02/25/22 02/25/22 02/25/22 Range/Units 13:44 13:44 13:44 WBC (4.5-11.0) K/mm3 RBC (3.65-5.03) M/mm3 Hgb (10.1-14.3) gm/dl Hct (30.3-42.9) % MCV (79-97) fl MCH (28-32) pg MCHC (30-34) % RDW (13.2-15.2) % Plt Count (140-440) K/mm3 Lymph % (Auto) Add Manual Diff Total Counted Seg Neutrophils % Seg Neuts % (Manual) (40.0-70.0) % Band Neutrophils % % Reactive Lymphs % (Man) % Monocytes % (Manual) (0.0-7.3) % Eosinophils % (Manual) (0.0-4.3) % Metamyelocytes % % Myelocytes % % Promyelocytes % % Blast Cells % % Nucleated RBC % Seg Neutrophils # Man (1.8-7.7) K/mm3 Band Neutrophils # K/mm3 Lymphocytes # (Manual) (1.2-5.4) K/mm3 Abs React Lymphs (Man) K/mm3 Monocytes # (Manual) (0.0-0.8) K/mm3 Eosinophils # (Manual) (0.0-0.4) K/mm3 Basophils # (Manual) (0.0-0.1) K/mm3 Metamyelocytes # K/mm3 Myelocytes # K/mm3 Promyelocytes # K/mm3 Blast Cells # K/mm3 WBC Morphology Hypersegmented Neuts Hyposegmented Neuts Hypogranular Neuts Smudge Cells Toxic Granulation Toxic Vacuolation Dohle Bodies Pelger-Huet Anomaly Kwadwo Rods Platelet Estimate Clumped Platelets Plt Clumps, EDTA Large Platelets Giant Platelets Platelet Satelliting Plt Morphology Comment RBC Morphology Dimorphic RBCs Polychromasia Hypochromasia Poikilocytosis Anisocytosis Microcytosis Macrocytosis Spherocytes Pappenheimer Bodies Sickle Cells Target Cells Tear Drop Cells Ovalocytes Helmet Cells Barrera-Lovell Bodies Cactus Rings [place] Cells Bite Cells Crenated Cell Elliptocytes Acanthocytes (Spur) Rouleaux Hemoglobin C Crystals Schistocytes Malaria parasites Tyrone Bodies Hem Pathologist Commnt PT (12.2-14.9) Sec. INR (0.87-1.13) APTT (24.2-36.6) Sec. Sodium (137-145) mmol/L Potassium (3.6-5.0) mmol/L Chloride (98-107) mmol/L Carbon Dioxide (22-30) mmol/L Anion Gap mmol/L BUN (7-17) mg/dL Creatinine (0.6-1.2) mg/dL Estimated GFR ml/min BUN/Creatinine Ratio % Glucose (65-100) mg/dL Lactic Acid (0.7-2.0) mmol/L Calcium (8.4-10.2) mg/dL Total Bilirubin (0.1-1.2) mg/dL Direct Bilirubin (0-0.2) mg/dL Indirect Bilirubin mg/dL AST (5-40) units/L ALT (7-56) units/L Alkaline Phosphatase (35-129) units/L Ammonia (25-60) umol/L Total Creatine Kinase (30-135) units/L CK-MB (CK-2) (0.0-4.0) ng/mL CK-MB (CK-2) Rel Index (0-4) Troponin T (0.00-0.029) ng/mL Total Protein (6.3-8.2) g/dL Albumin (3.9-5) g/dL Albumin/Globulin Ratio % TSH (0.270-4.200) mlU/mL Urine Color (Yellow) Urine Turbidity (Clear) Urine pH (5.0-7.0) Ur Specific [place] (1.003-1.030) Urine Protein (Negative) mg/dL Urine Glucose (UA) (Negative) mg/dL Urine Ketones (Negative) mg/dL Urine Blood (Negative) Urine Nitrite (Negative) Urine Bilirubin (Negative) Urine Urobilinogen (<2.0) mg/dL Ur Leukocyte Esterase (Negative) Urine WBC (Auto) (0.0-6.0) /HPF Urine RBC (Auto) (0.0-6.0) /HPF U Epithel Cells (Auto) (0-13.0) /HPF Urine Mucus /HPF Salicylates < 0.3 L (2.8-20.0) mg/dL Urine Opiates Screen Urine Methadone Screen Acetaminophen 5.0 L (10.0-30.0) ug/mL Ur Barbiturates Screen Ur Phencyclidine Scrn Ur Amphetamines Screen U Benzodiazepines Scrn Urine Cocaine Screen U Marijuana (THC) Screen Drugs of Abuse Note Plasma/Serum Alcohol < 0.01 (0-0.07) % 02/25/22 02/25/22 02/25/22 Range/Units 13:44 13:44 13:55 WBC (4.5-11.0) K/mm3 RBC (3.65-5.03) M/mm3 Hgb (10.1-14.3) gm/dl Hct (30.3-42.9) % MCV (79-97) fl MCH (28-32) pg MCHC (30-34) % RDW (13.2-15.2) % Plt Count (140-440) K/mm3 Lymph % (Auto) Add Manual Diff Total Counted Seg Neutrophils % Seg Neuts % (Manual) (40.0-70.0) % Band Neutrophils % % Reactive Lymphs % (Man) % Monocytes % (Manual) (0.0-7.3) % Eosinophils % (Manual) (0.0-4.3) % Metamyelocytes % % Myelocytes % % Promyelocytes % % Blast Cells % % Nucleated RBC % Seg Neutrophils # Man (1.8-7.7) K/mm3 Band Neutrophils # K/mm3 Lymphocytes # (Manual) (1.2-5.4) K/mm3 Abs React Lymphs (Man) K/mm3 Monocytes # (Manual) (0.0-0.8) K/mm3 Eosinophils # (Manual) (0.0-0.4) K/mm3 Basophils # (Manual) (0.0-0.1) K/mm3 Metamyelocytes # K/mm3 Myelocytes # K/mm3 Promyelocytes # K/mm3 Blast Cells # K/mm3 WBC Morphology TNR Hypersegmented Neuts Hyposegmented Neuts Hypogranular Neuts Smudge Cells Toxic Granulation Toxic Vacuolation Dohle Bodies Pelger-Huet Anomaly Kwadwo Rods Platelet Estimate Clumped Platelets Plt Clumps, EDTA Large Platelets Giant Platelets Platelet Satelliting Plt Morphology Comment RBC Morphology Dimorphic RBCs Polychromasia Hypochromasia Poikilocytosis Anisocytosis Microcytosis Macrocytosis Spherocytes Pappenheimer Bodies Sickle Cells Target Cells Tear Drop Cells Ovalocytes Helmet Cells Barrera-Lovell Bodies Cactus Rings [place] Cells Bite Cells Crenated Cell Elliptocytes Acanthocytes (Spur) Rouleaux Hemoglobin C Crystals Schistocytes Malaria parasites Tyrone Bodies Hem Pathologist Commnt PT (12.2-14.9) Sec. INR (0.87-1.13) APTT (24.2-36.6) Sec. Sodium (137-145) mmol/L Potassium (3.6-5.0) mmol/L Chloride (98-107) mmol/L Carbon Dioxide (22-30) mmol/L Anion Gap mmol/L BUN (7-17) mg/dL Creatinine (0.6-1.2) mg/dL Estimated GFR ml/min BUN/Creatinine Ratio % Glucose (65-100) mg/dL Lactic Acid (0.7-2.0) mmol/L Calcium (8.4-10.2) mg/dL Total Bilirubin (0.1-1.2) mg/dL Direct Bilirubin (0-0.2) mg/dL Indirect Bilirubin mg/dL AST (5-40) units/L ALT (7-56) units/L Alkaline Phosphatase (35-129) units/L Ammonia (25-60) umol/L Total Creatine Kinase 106 (30-135) units/L CK-MB (CK-2) 1.5 (0.0-4.0) ng/mL CK-MB (CK-2) Rel Index 1.4 (0-4) Troponin T (0.00-0.029) ng/mL Total Protein (6.3-8.2) g/dL Albumin (3.9-5) g/dL Albumin/Globulin Ratio % TSH (0.270-4.200) mlU/mL Urine Color Yellow (Yellow) Urine Turbidity Clear (Clear) Urine pH 5.0 (5.0-7.0) Ur Specific [place] 1.009 (1.003-1.030) Urine Protein <15 mg/dl (Negative) mg/dL Urine Glucose (UA) Neg (Negative) mg/dL Urine Ketones Neg (Negative) mg/dL Urine Blood Neg (Negative) Urine Nitrite Neg (Negative) Urine Bilirubin Neg (Negative) Urine Urobilinogen < 2.0 (<2.0) mg/dL Ur Leukocyte Esterase Neg (Negative) Urine WBC (Auto) < 1.0 (0.0-6.0) /HPF Urine RBC (Auto) 1.0 (0.0-6.0) /HPF U Epithel Cells (Auto) 6.0 (0-13.0) /HPF Urine Mucus Few /HPF Salicylates (2.8-20.0) mg/dL Urine Opiates Screen Urine Methadone Screen Acetaminophen (10.0-30.0) ug/mL Ur Barbiturates Screen Ur Phencyclidine Scrn Ur Amphetamines Screen U Benzodiazepines Scrn Urine Cocaine Screen U Marijuana (THC) Screen Drugs of Abuse Note Plasma/Serum Alcohol (0-0.07) % 02/25/22 Range/Units 13:55 WBC (4.5-11.0) K/mm3 RBC (3.65-5.03) M/mm3 Hgb (10.1-14.3) gm/dl Hct (30.3-42.9) % MCV (79-97) fl MCH (28-32) pg MCHC (30-34) % RDW (13.2-15.2) % Plt Count (140-440) K/mm3 Lymph % (Auto) Add Manual Diff Total Counted Seg Neutrophils % Seg Neuts % (Manual) (40.0-70.0) % Band Neutrophils % % Reactive Lymphs % (Man) % Monocytes % (Manual) (0.0-7.3) % Eosinophils % (Manual) (0.0-4.3) % Metamyelocytes % % Myelocytes % % Promyelocytes % % Blast Cells % % Nucleated RBC % Seg Neutrophils # Man (1.8-7.7) K/mm3 Band Neutrophils # K/mm3 Lymphocytes # (Manual) (1.2-5.4) K/mm3 Abs React Lymphs (Man) K/mm3 Monocytes # (Manual) (0.0-0.8) K/mm3 Eosinophils # (Manual) (0.0-0.4) K/mm3 Basophils # (Manual) (0.0-0.1) K/mm3 Metamyelocytes # K/mm3 Myelocytes # K/mm3 Promyelocytes # K/mm3 Blast Cells # K/mm3 WBC Morphology Hypersegmented Neuts Hyposegmented Neuts Hypogranular Neuts Smudge Cells Toxic Granulation Toxic Vacuolation Dohle Bodies Pelger-Huet Anomaly Kwadwo Rods Platelet Estimate Clumped Platelets Plt Clumps, EDTA Large Platelets Giant Platelets Platelet Satelliting Plt Morphology Comment RBC Morphology Dimorphic RBCs Polychromasia Hypochromasia Poikilocytosis Anisocytosis Microcytosis Macrocytosis Spherocytes Pappenheimer Bodies Sickle Cells Target Cells Tear Drop Cells Ovalocytes Helmet Cells Barrera-Lovell Bodies Cactus Rings [place] Cells Bite Cells Crenated Cell Elliptocytes Acanthocytes (Spur) Rouleaux Hemoglobin C Crystals Schistocytes Malaria parasites Tyrone Bodies Hem Pathologist Commnt PT (12.2-14.9) Sec. INR (0.87-1.13) APTT (24.2-36.6) Sec. Sodium (137-145) mmol/L Potassium (3.6-5.0) mmol/L Chloride (98-107) mmol/L Carbon Dioxide (22-30) mmol/L Anion Gap mmol/L BUN (7-17) mg/dL Creatinine (0.6-1.2) mg/dL Estimated GFR ml/min BUN/Creatinine Ratio % Glucose (65-100) mg/dL Lactic Acid (0.7-2.0) mmol/L Calcium (8.4-10.2) mg/dL Total Bilirubin (0.1-1.2) mg/dL Direct Bilirubin (0-0.2) mg/dL Indirect Bilirubin mg/dL AST (5-40) units/L ALT (7-56) units/L Alkaline Phosphatase (35-129) units/L Ammonia (25-60) umol/L Total Creatine Kinase (30-135) units/L CK-MB (CK-2) (0.0-4.0) ng/mL CK-MB (CK-2) Rel Index (0-4) Troponin T (0.00-0.029) ng/mL Total Protein (6.3-8.2) g/dL Albumin (3.9-5) g/dL Albumin/Globulin Ratio % TSH (0.270-4.200) mlU/mL Urine Color (Yellow) Urine Turbidity (Clear) Urine pH (5.0-7.0) Ur Specific [place] (1.003-1.030) Urine Protein (Negative) mg/dL Urine Glucose (UA) (Negative) mg/dL Urine Ketones (Negative) mg/dL Urine Blood (Negative) Urine Nitrite (Negative) Urine Bilirubin (Negative) Urine Urobilinogen (<2.0) mg/dL Ur Leukocyte Esterase (Negative) Urine WBC (Auto) (0.0-6.0) /HPF Urine RBC (Auto) (0.0-6.0) /HPF U Epithel Cells (Auto) (0-13.0) /HPF Urine Mucus /HPF Salicylates (2.8-20.0) mg/dL Urine Opiates Screen Negative Urine Methadone Screen Negative Acetaminophen (10.0-30.0) ug/mL Ur Barbiturates Screen Negative Ur Phencyclidine Scrn Negative Ur Amphetamines Screen Negative U Benzodiazepines Scrn Negative Urine Cocaine Screen Negative U Marijuana (THC) Screen Positive Drugs of Abuse Note Disclamer Plasma/Serum Alcohol (0-0.07) % - Radiology Data Radiology results: report reviewed, image reviewed Critical care attestation.: If time is entered above; I have spent that time in minutes in the direct care of this critically ill patient, excluding procedure time. ED Disposition Is pt being admited?: No Does the pt Need Aspirin: No
--- NOTE | 2022-02-25 13:53 | XRay Report ---
CHEST 1 VIEW INDICATION / CLINICAL INFORMATION: Altered Mental Status. COMPARISON: CTA chest 06/05/2021 FINDINGS: SUPPORT DEVICES: None. HEART / MEDIASTINUM: Cardiomegaly is stable. LUNGS / PLEURA: Mild pulmonary vascular congestion is present without overt interstitial pulmonary ed sarahi. The lungs are otherwise grossly clear. No pleural effusion. No pneumothorax. ADDITIONAL FINDINGS: No significant additional findings. IMPRESSION: 1. Stable cardiomegaly. Mild pulmonary vascular congestion. Signer Name: Mery Blood MD Signed: 02/25/2022 1:49 PM Workstation Name: [id number]
[2022-02-25 14:03] LABS: Hematocrit 42.1 % (30.3-42.9); Hemoglobin 13.7 gm/dl (10.1-14.3); Mean Corpuscular HGB Conc 33 % (30-34); Mean Corpuscular Volume 92 fl (79-97); Platelet Count 250 K/mm3 (140-440); Red Blood Count 4.59 M/mm3 (3.65-5.03); Red Cell Distribution Width 16.2 % (13.2-15.2)
[2022-02-25 14:21] LABS: INR 0.96 (0.87-1.13)
[2022-02-25 14:22] LABS: Partial Thromboplastin Time 29.6 Sec. (24.2-36.6)
[2022-02-25 14:29] LABS: Creatine Kinase MB 1.5 ng/mL (0.0-4.0)
[2022-02-25 14:31] LABS: Alanine Aminotransferase 9 units/L (7-56); Albumin 3.8 g/dL (3.9-5); Blood Urea Nitrogen 11 mg/dL (7-17); Calcium 9.4 mg/dL (8.4-10.2); Hemolysis Index 6
[2022-02-25 14:36] LABS: BUN/Creatinine Ratio 22; Bilirubin,Direct < 0.2 mg/dL (0-0.2)
[2022-02-25] MEDS ORDERED: ONDANSETRON 4 MG/2 ML INJ IV ONE (14:40)
[2022-02-25] MEDS ORDERED: MORPHINE 4 MG/1 ML INJ IV ONE (14:40)
[2022-02-25] MEDS ORDERED: ONDANSETRON 4 MG/2 ML INJ ONE (14:41)
[2022-02-25] MEDS ORDERED: MORPHINE 4 MG/1 ML INJ ONE (14:42)
[2022-02-25 14:43] LABS: Amphetamine Screen,Urine Negative; Benzodiazepines Screen,Urine Negative; Cocaine Screen,Urine Negative; Methadone Screen,Urine Negative; Opiate Screen,Urine Negative
[2022-02-25 15:08] LABS: Cannabinoid Screen,Urine Positive
[2022-02-25 15:14] LABS: Bilirubin,Urine NEG (Negative); Blood,Urine NEG (Negative); Color,Urine Yellow (Yellow); Mucus,Urine FEW /HPF; Protein,Urine <15 mg/dL mg/dL (Negative); Urobilinogen,Urine < 2.0 mg/dL (<2.0); WBC,Urine < 1.0 /HPF (0.0-6.0)
[2022-02-25 15:17] LABS: Total Cells Counted 100
[2022-02-25 15:18] LABS: Platelet Estimate Consistent w Auto; Target Cells Few
--- NOTE | 2022-02-25 15:56 | Cat Scan Report ---
CTA CHEST WITH CONTRAST INDICATION / CLINICAL INFORMATION: chest pain. TECHNIQUE: Axial CT images were obtained through the chest after injection of 120 mL Omnipaque 350 IV contrast. 3 plane MIP and/or 3D reconstructions were produced. All CT scans at this location are per formed using CT dose reduction for ALARA by means of automated exposure control. COMPARISON: CT dated 06/05/21 FINDINGS: Moderate streak artifact of the chest from arms down positioning which was required for CTA neck performed at the same time. PULMONARY EMBOLUS: No definite pulmonary embolism given limitations of the study. THORACIC AORTA: No significant abnormality. HEART: Moderately enlarged but unchanged. No acute abnormality. CORONARY ARTERY CALCIFICATION: Absent -- None. MEDIASTINUM / KUN: No significant abnormality. PLEURA: No pleural effusion. No pneumothorax. LUNGS: No acute air space or interstitial disease. ADDITIONAL FINDINGS: None. UPPER ABDOMEN: No acute findings. SKELETAL STRUCTURES: No significant osseous abnormality. IMPRESSION: 1. No CT evidence for pulmonary embolism on this limited study. 2. Moderate cardiomegaly but no acute pulmonary or pleural findings. Signer Name: Karen Posey MD Signed: 02/25/2022 3:52 PM Workstation Name: [id number]
--- NOTE | 2022-02-25 15:58 | Cat Scan Report ---
. CT BRAIN: 02/25/2022 INDICATION / CLINICAL INFORMATION: Altered Mental Status. COMPARISON: None available. FINDINGS: BRAIN/INTRACRANIAL STRUCTURES: Unenhanced CT images of the brain were obtained. There is no evidence of acute abnormality. Ventricles and sulci are normal in size and shape. There is no evidence of hemorrhage or mass. There are no abnormal extra-axial fluid collections. EXTRACRANIAL STRUCTURES: Unremarkable. IMPRESSION: No acute abnormality. All CT scans at this location are performed using dose reduction to ALARA by means of automated expos ure control. Signer Name: Min Rios MD Signed: 02/25/2022 3:54 PM Workstation Name: [id number]
--- NOTE | 2022-02-25 16:11 | Cat Scan Report ---
CTA NECK WITH CONTRAST 02/25/2022 INDICATION / CLINICAL INFORMATION: stroke. COMPARISON: None. TECHNIQUE: Routine CTA of the neck is performed. 3-D/MIP reformats were postprocessed. Percentage st enosis is determined by direct quantitative measurements of diseased internal carotid artery diameter compared with normal distal internal carotid artery reference segments or by criteria similar to KHUSHBU CET where applicable. All CT scans at this location are performed using CT dose reduction for ALARA b y means of automated exposure control. CONTRAST: 100 ml of Omnipaque 350 FINDINGS: Carotid bifurcations: There is no evidence of carotid bifurcation stenosis Carotid arteries: No significant abnormality. Cervical vertebral arteries: No significant abnormality. Aortic arch: No significant abnormality. Incidental note is made of diffuse homogeneous enlargement of thyroid gland, without evidence of foca l nodules or mass. IMPRESSION: No significant abnormality. CTA HEAD WITH CONTRAST 02/25/2022 HISTORY: stroke. COMPARISON: None. TECHNIQUE: All CT scans at this location are performed using CT dose reduction for ALARA by means of automated exposure control.. 3-D/MIP reformats postprocessed. Percentage stenosis is determined by d irect quantitative measurements of diseased internal carotid artery diameter compared with normal dis jimmy internal carotid artery reference segments or by criteria similar to NASCET where applicable. CONTRAST: 100 ml of Omnipaque 350 FINDINGS: CTA HEAD: Intracranial vertebral arteries: No significant abnormality. Basilar artery: No significant abnormality. Posterior cerebral arteries: No significant abnormality. Intracranial internal carotid arteries: There is no evidence of vessel occlusion. Small outpouchings along the inferior aspect of the distal internal carotid arteries is present bilat erally. This appears to be in the expected vicinity of the origin of the posterior communicating russ cruz, although these vessels cannot be specifically visualized. Possibility of small P-comm aneurysms , 2 to 3 mm, cannot be excluded. Anterior cerebral arteries: No significant abnormality. Middle cerebral arteries: No significant abnormality. Dural venous sinuses:Not optimally opacified. No significant abnormality. Additional findings: None. IMPRESSION: 1. No evidence of vessel occlusion. Question of small posterior communicating artery origin aneurysm versus infundibulum. Signer Name: Min Rios MD Signed: 02/25/2022 4:07 PM Workstation Name: [id number]
[2022-02-25 18:07] VITALS: BP 146/83
--- NOTE | 2022-02-26 00:10 | Emergency Department Report ---
Blank Doc - Documentation Documentation: [facility] Consult Note # Demographics Consult Type: Acute Stroke Level 1 (0-4.5 hrs) Patient Location: Emergency Room First Name: Allie Last Name: Chris Date of : 1965 Age: 56 Gender: Female Facility: [facility] Time of Initial Page (Eastern Time): 02/25/2022, 13:24 Time of Return Call (Eastern Time): 02/25/2022, 13:24 # HPI History: 56 year old female with hx of HTN who stopped talking at 8:30 am but is starting to converse in stuttering voice. Patients daughter and patient state she had similar episode in 2007 with pain in her chest and her speech was effected similarly. She was told it was due to panic attack. It resolved eventually. Patient feels similarly now as she did back in 2007. Initially on todays presentation she was not speaking but is able to given pieces of the history and confirms she is improving. # Scores Level of Consciousness 1a: [0] = Alert; keenly responsive LOC Questions 1b: [0] = Answers both questions correctly LOC Commands 1c: [0] = Performs both tasks correctly Best Gaze 2: [0] = Normal Visual 3: [0] = No visual loss Facial Palsy 4: [0] = Normal symmetrical movements Motor Arm Left 5a: [0] = No drift Motor Arm Right 5b: [4] = No movement Motor Leg Left 6a: [0] = No drift Motor Leg Right 6b: [4] = No movement Limb Ataxia 7: [0] = Absent Sensory 8: [0] = Normal Best Language 9: [0] = No aphasia Dysarthria 10: [1] = Nozk-gh-yfovqkkf dysarthria Extinction and Inattention 11: [0] = No abnormality NIHSS Total: 9 # Exam Motor: refuses to move right side due to pain. # PMH-FH-SH Past Medical History: asthma hypertension Social History: lives with family # Assessment Impression: 56 year old female with hx of HTN, asthma, anxiety presents to ED due to speech arrest that was noted by her daughter this morning as well as complaints of diffuse pain that is in her arms, chest, back. Patient is not starting to speak but in a stuttering. Patient confirms similar episode in the past and was told it was due to panic attack. Currently patient refuses to move right side due to pain. When asked if she is able she states yes but she is having chest pain and back pain and cannot move her right arm. CTH and CTA : negative for acute findings Given the findings and acute changes, recommend stroke work up. If found to be negative patient needs psych eval for further management of her symptoms of anxiety. l # Plan Target Blood Pressure: SBP < 220 DBP < 105 Labs: ABG Ammonia CBC comprehensive metabolic panel ESR hemoglobin A1c lipid panel troponin TSH urine drug screen ua Imaging: (urgency: STAT): CT Head without contrast CT Angiogram Head and CT Angiogram Neck Imaging: (urgency: routine): MRI Brain without contrast Therapy/Evaluation: NPO until swallow evaluation PT/OT evaluation speech/swallow consultation Medication: aspirin 81 mg daily start statin with goal of LDL < 70 Other: If patient has any neurological deterioration please call me back immediately permissive hypertension telemetry monitoring would not pursue stroke work-up if MRI is negative I have discussed my recommendations with the referring provider
--- NOTE | 2022-02-27 06:39 | Cat Scan Report ---
CT angio neck INDICATION / CLINICAL INFORMATION: stroke. TECHNIQUE: CT angiography of neck was performed prior to and following administration of 1 25 cc of Omnipaque 350 intravenous contrast. In addition to axial source images, reconstructed coronal and sag ittal MPR series as well as thin slab coronal and sagittal MIP series were provided. . Calculation o f stenosis will be made using direct NASCET criteria. All CT scans at this location are performed usi ng CT dose reduction for ALARA by means of automated exposure control. COMPARISON: CT brain 02/25/2022 FINDINGS: VASCULAR FINDINGS: NECK: AORTA: The aorta demonstrates normal branch morphology. No acute aortic pathology. No severe stenosi s of great vessel origins. GREAT VESSELS: No significant abnormality demonstrated involving great vessels. VERTEBRAL ARTERIES: Vertebral origins are patent. The bilateral V2 segments demonstrate no significan t abnormality. RIGHT CAROTID: The right common carotid artery, common carotid artery bifurcation, external carotid a rtery, and cervical segment internal carotid artery demonstrate no significant abnormalities. LEFT CAROTID: The left common carotid artery, common carotid artery bifurcation, external carotid art idalia, and cervical segment internal carotid artery demonstrate no significant abnormalities. VENOUS STRUCTURES: No significant abnormality of the jugular veins is demonstrated. NONVASCULAR FINDINGS: Thyroid is diffusely enlarged and minimally heterogeneous in appearance suggesting presence of multin odular goiter. Soft tissues and musculature of the neck, osseous structures of the cervical spine, an d visualized structures of the upper chest demonstrate no acute pathology. IMPRESSION: 1. No hemodynamically significant stenosis or significant deposition of plaque demonstrated involving anterior and posterior cervical arterial structures. 2. No significant abnormality of the cervical venous structures. Signer Name: Guilherme Hammer II, MD Signed: 02/27/2022 6:34 AM Workstation Name: [id number]
== END 2022-02-25 19:00 | disposition home or self-care (01) ==
LOC: ED 12:08
DX: R41.82 Altered mental status, unspecified (principal); F41.9 Anxiety disorder, unspecified; R79.1 Abnormal coagulation profile; I10 Essential (primary) hypertension; J45.909 Unspecified asthma, uncomplicated; Z88.5 Allergy status to narcotic agent; Z79.899 Other long term (current) drug therapy
CPT/HCPCS: 36415; 70450; 70496; 70498; 71045; 71260; 80048; 80076; 80307; 81001; 82140; 82550; 82553; 82962; 84443; 84484; 85007; 85025; 85610; 85730; 87040; 96374; 96375; 99285; J2270; J2405; Q9967; 80320; G0480